=== PATIENT | female | born 2000 | race Caucasian/White ===

== ENCOUNTER 2020-02-28 18:01 | Emergency (ER) | payer MEDICAID ==
[~2020-02-28] VITALS: Ht 160 cm; Wt 49.9 kg
[2020-02-28 18:01] VITALS: BP_SYST 118; BP_SYST 140; BP_DIAS 103; BP_DIAS 72
--- NOTE | 2020-02-28 18:10 | NUR ---
PT C/O NASAL CONGESTION, BODY ACHES, DIARRHEA, LOSS SENSE OF SMELL AND TASTE FOR 5 DAYS. DENIES NAUSEA, VOMITING, FEVER, COUGH, SOB, CP, SORE THROAT. PT STATES THE PAIN IS 9/10. PMH: DENIES
--- NOTE | 2020-02-28 18:39 | NUR ---
NOVEL SWAB OBTAINED AND SENT TO THE LAB.
[2020-02-28 18:54] VITALS: BP 110/70
--- NOTE | 2020-02-28 18:54 | NUR ---
Patient discharged with v/s stable. Written and verbal after care instructions given and explained. Patient alert, oriented and verbalized understanding of instructions. Ambulatory with steady gait. All questions addressed prior to discharge. ID band removed. Patient advised to follow up with PMD. Rx of Flonase, Promethazine, Imodium, and Ibuprofen given. Patient educated on indication of medication including possible reaction and side effects. Opportunity to ask questions provided and answered.
--- NOTE | 2020-03-02 10:13 | NUR ---
Covid +--critical value received from lab.
== END 2020-02-28 18:54 | disposition home or self-care (01) ==
LOC: MED 18:01
DX: B34.9 Viral infection, unspecified (principal); Z20.828 Contact with and (suspected) exposure to other viral communicable diseases
CPT/HCPCS: 99283; U0003

== ENCOUNTER 2022-12-02 08:47 | Emergency (ER) | payer MEDICAID ==
[~2022-12-02] VITALS: Ht 157.5 cm; Wt 52.8 kg
[2022-12-02 09:14] VITALS: BP 119/91; PULSE 108; RESP 20; TEMP 98.7; O2SAT 100
[2022-12-02] MEDS ORDERED: ACET-10509 PO (10:20)
[2022-12-02] MEDS ORDERED: ONDA-188 PO (10:20)
[2022-12-02 10:21] LABS: FLU A ANTIGEN negative (NEGATIVE); FLU B ANTIGEN NEGATIVE (NEGATIVE)
[2022-12-02] MEDS ORDERED: NIRM1TAB PO (10:25)
== END 2022-12-02 10:23 | disposition home or self-care (01) ==
LOC: MED 08:47
DX: U07.1 COVID-19 (principal); Z79.899 Other long term (current) drug therapy
CPT/HCPCS: 81025; 99283

== ENCOUNTER 2023-06-30 15:23 | Emergency (ER) | payer MEDICAID ==
[~2023-06-30] VITALS: Ht 157.5 cm; Wt 56.7 kg
[~2023-06-30 15:23] MED LIST: ACET-10509 PO; NIRM1TAB PO; ONDA-188 PO
[2023-06-30 15:32] VITALS: BP 141/75; PULSE 96; RESP 19; TEMP 98.5; O2SAT 97
[2023-06-30] MEDS: ACETAMINOPHEN EXTRA STRENGTH 500 MG TAB PO ONE (16:18)
[2023-06-30 17:05] LABS: FLU A ANTIGEN negative (NEGATIVE); FLU B ANTIGEN NEGATIVE (NEGATIVE)
[2023-06-30] MEDS ORDERED: IBUP-1842 PO (17:15)
[2023-06-30] MEDS ORDERED: ACET-10509 PO (17:15)
== END 2023-06-30 17:23 | disposition home or self-care (01) ==
LOC: MED 15:23
DX: J06.9 Acute upper respiratory infection, unspecified (principal); Z20.822 Contact with and (suspected) exposure to COVID-19; Z79.899 Other long term (current) drug therapy
CPT/HCPCS: 71046; 99284